=== PATIENT | female | born 1960 | race Caucasian/White ===

== ENCOUNTER 2018-07-26 21:40 | Outpatient (CLI) | payer SELFPAY | END 2018-07-26 21:41 | disposition critical access hospital (66) | LOC: EMS 21:40 | PROVIDERS: ATTEND Surgery | DX: F41.9 Anxiety disorder, unspecified (principal); Z72.89 Other problems related to lifestyle | CPT/HCPCS: A0425; A0429 ==

== ENCOUNTER 2018-07-26 21:59 | Emergency (ER) | payer OTHER ==
[2018-07-26] MEDS ORDERED: diphenhydrAMINE INJ 50 MG/ML VIAL IVP STA (22:18)
[2018-07-26] MEDS ORDERED: ONDANSETRON 4 MG/2 ML VIAL IVP STA (22:18)
[2018-07-26] MEDS ORDERED: SODIUM CHLORIDE 0.9% 1,000 ML IV ONE (22:18)
[2018-07-26 22:56] LABS: BASOPHILS # (AUTO) 0.1 10^3/uL (0.0-0.1); EOSINOPHILS % (AUTO) 0.1 %; HGB - HEMOGLOBIN 13.4 g/dL (12.0-16.0); LYMPHOCYTES # (AUTO) 1.7 10^3/uL (1.5-3.5); LYMPHOCYTES % (AUTO) 16.8 %; MEAN CORPUSCULAR HEMOGLOBIN 32.1 pg (27.0-31.0); MEAN CORPUSCULAR HGB CONC 34.8 g/dL (32.0-36.0); MEAN CORPUSCULAR VOLUME 92.1 fL (81.0-99.0); MEAN PLATELET VOLUME 7.6 fL (7.9-10.8); MONOCYTES # (AUTO) 0.5 10^3/uL (0.0-1.0); MONOCYTES % (AUTO) 5.1 %; NEUTROPHILS # (AUTO) 7.7 10^3/uL (1.5-6.6); PLT - PLATELET COUNT 384 10^3/uL (130-450); RED BLOOD COUNT 4.19 10^6/uL (4.20-5.40); RED CELL DISTRIBUTION WIDTH 12.3 % (12.0-15.0)
[2018-07-26 23:17] LABS: ALBUMIN 4.1 g/dL (3.2-5.5); ALBUMIN/GLOBULIN RATIO 1.2 (1.0-2.2); BILIRUBIN,TOTAL 0.9 mg/dL (0.2-1.0); CALCIUM 8.8 mg/dL (8.5-10.3); CREATININE 0.5 mg/dL (0.4-1.0); TOTAL PROTEIN 7.5 g/dL (6.7-8.2)
[2018-07-26 23:21] LABS: BILIRUBIN,URINE NEGATIVE (NEGATIVE); GLUCOSE, URINE (UA) NEGATIVE (NEGATIVE); KETONES,URINE (UA) TRACE mg/dL (NEGATIVE); LEUKOCYTE ESTERASE, URINE MODERATE (NEGATIVE); NITRITE,URINE NEGATIVE (NEGATIVE); OCCULT BLOOD,URINE TRACE-INTA (NEGATIVE); PROTEIN,URINE TRACE mg/dL (NEGATIVE); UROBILINOGEN,URINE 0.2 (NORMAL) E.U./dL (NORMAL)
[2018-07-26 23:22] LABS: CLARITY,URINE CLEAR (CLEAR)
[2018-07-26 23:26] LABS: BACTERIA,URINE Few /HPF (None Seen); RBC,URINE 0-5 /HPF (0-5); SQUAMOUS EPITHELIAL CELL,UR RARE Squamous (<= Few)
[2018-07-26 23:27] LABS: MUCUS,URINE Moderate Strands
[2018-07-26] MEDS ORDERED: POTASSIUM CHLORIDE 20 MEQ TABLET PO STA (23:49)
[2018-07-26] MEDS ORDERED: LORazepam 0.5 MG TABLET PO STA (23:49)
--- NOTE | 2018-07-26 23:49 | ED Physician Documentation ---
History of Present Illness - Stated complaint Stated Complaint: ETOH - Chief complaint Chief Complaint: MHE - History obtained from History obtained from: Patient - Additonal information Additional information: 58-year-old female with a history of alcohol dependence presents the emergency department with reports of withdrawing. The patient reports drinking just prior to calling EMS, the patient did vomit once. The patient denies any specific pain complaint. The patient is visiting the area and normally resides in the [place] area. No other associated symptoms. No trauma. Symptoms are descr ibed as moderate. Review of Systems Constitutional: denies: Fever, Chills Eyes: denies: Discharge Ears: denies: Ear pain Nose: denies: Congestion Throat: denies: Sore throat Cardiac: denies: Chest pain / pressure Respiratory: denies: Dyspnea GI: reports: Nausea, Vomiting. denies: Abdominal Pain, Hematemesis : denies: Dysuria Skin: denies: Rash Musculoskeletal: denies: Neck pain Neurologic: denies: Generalized weakness Immunocompromised: denies: Chemotherapy PD PAST MEDICAL HISTORY - Past Medical History Past Medical History: Yes Psych: Anxiety, Post traumatic stress disorder, Other Other Past Medical History: mood disorder, alcoholism - Past Surgical History Past Surgical History: Yes /SECURITY SYSTEMS ADMINISTRATOR: Hysterectomy, Oophrectomy - Present Medications Home Medications: Ambulatory Orders Medication Instructions Recorded Confirmed Disulfiram [Antabuse] 250 mg PO 07/26/18 Naltrexone HCl 50 mg PO 07/26/18 - Allergies Allergies/Adverse Reactions: Allergies Allergy/AdvReac Type Severity Reaction Status Date / Time No Known Drug Allergies Allergy Verified 07/26/18 22:10 - Social History Does the pt smoke?: No Smoking Status: Never smoker Does the pt drink ETOH?: Yes Does the pt have substance abuse?: No PD ED PE NORMAL - General General: Alert and oriented X 3, No acute distress - HEENT HEENT: Atraumatic, PERRL, EOMI, Ears normal, Moist mucous membranes, Pharynx benign - Neck Neck: Supple, no meningeal sign - Cardiac Cardiac: RRR, Strong equal pulses - Respiratory Respiratory: No respiratory distress, Clear bilaterally - Abdomen Abdomen: Soft, Non tender, Non distended - Derm Derm: Normal color - Extremities Extremities: No deformity, Normal ROM s pain, No edema - Neuro Neuro: Alert and oriented X 3, energy director 2-12 intact, No motor deficit, Normal speech - Psych Psych: Normal mood, Normal affect Results - Vitals Vitals: Vital Signs - 24 hr 07/26/18 07/26/18 07/27/18 22:02 23:32 01:20 Temperature 36.6 C Heart Rate 91 92 98 Respiratory 25 H 20 20 Rate Blood Pressure 164/83 H 166/96 H 151/78 H O2 Saturation 97 96 96 07/27/18 01:28 Temperature 36.7 C Heart Rate 91 Respiratory 17 Rate Blood Pressure 151/78 H O2 Saturation 95 Oxygen O2 Source Room air - Labs Labs: Laboratory Tests 07/26/18 07/26/18 07/26/18 22:39 22:39 23:02 WBC 10.0 RBC 4.19 L Hgb 13.4 Hct 38.6 MCV 92.1 MCH 32.1 H MCHC 34.8 RDW 12.3 Plt Count 384 MPV 7.6 L Neut # (Auto) 7.7 H Lymph # (Auto) 1.7 [place] # (Auto) 0.5 Eos # (Auto) 0.0 Baso # (Auto) 0.1 Absolute Nucleated RBC 0.01 Nucleated RBC % 0.1 VBG pH VBG pCO2 VBG pO2 VBG HCO3 VBG Total CO2 VBG O2 Saturation VBG Base Excess Sodium 124 L Potassium 3.4 L Chloride 89 L Carbon Dioxide 21 Anion Gap 14.0 H BUN 7 Creatinine 0.5 Estimated GFR (MDRD) 126 Glucose 143 H Calcium 8.8 Total Bilirubin 0.9 AST 30 ALT 30 Alkaline Phosphatase 79 Total Protein 7.5 Albumin 4.1 Globulin 3.4 Albumin/Globulin Ratio 1.2 Lipase 30 Urine Color YELLOW Urine Clarity CLEAR Urine pH 6.0 Ur Specific [place] 1.025 Urine Protein TRACE Urine Glucose (UA) NEGATIVE Urine Ketones TRACE Urine Occult Blood TRACE-INTA Urine Nitrite NEGATIVE Urine Bilirubin NEGATIVE Urine Urobilinogen 0.2 (NORMAL) Ur Leukocyte Esterase MODERATE H Urine RBC 0-5 Urine WBC >25 H Ur Squamous Epith Cells RARE Squamous Urine Bacteria Few Urine Mucus Moderate Strands Ur Microscopic Review INDICATED Urine Culture Comments INDICATED Serum Ketones 07/27/18 07/27/18 07/27/18 00:15 00:15 00:15 WBC RBC Hgb Hct MCV MCH MCHC RDW Plt Count MPV Neut # (Auto) Lymph # (Auto) [place] # (Auto) Eos # (Auto) Baso # (Auto) Absolute Nucleated RBC Nucleated RBC % VBG pH 7.465 H VBG pCO2 27.8 L VBG pO2 174.3 H VBG HCO3 19.6 L VBG Total CO2 20.4 L VBG O2 Saturation 98.7 H VBG Base Excess -2.7 L Sodium 126 L Potassium 3.5 Chloride 95 L Carbon Dioxide 19 L Anion Gap 12.0 BUN 7 Creatinine 0.6 Estimated GFR (MDRD) 102 Glucose 139 H Calcium 8.5 Total Bilirubin AST ALT Alkaline Phosphatase Total Protein Albumin Globulin Albumin/Globulin Ratio Lipase Urine Color Urine Clarity Urine pH Ur Specific [place] Urine Protein Urine Glucose (UA) Urine Ketones Urine Occult Blood Urine Nitrite Urine Bilirubin Urine Urobilinogen Ur Leukocyte Esterase Urine RBC Urine WBC Ur Squamous Epith Cells Urine Bacteria Urine Mucus Ur Microscopic Review Urine Culture Comments Serum Ketones NEGATIVE PD MEDICAL DECISION MAKING - ED course ED course: The patient's CIWA Score is a 4, the patient appears appropriate for discharge and ongoing outpatient management. The patient was treated in the emergency department. The patient was given information on local detox centers and I advised that she can call in the morning to talk things over with social work. Presently, there is no indication for admission to the hospital since the patient is not manifesting any signs of delirium tremens, Or alcohol ketoacidosis. Patient currently appears appropriate for discharge and ongoing outpatient management. I discussed warning signs and recommended returning to the emergency department immediately for worsening or any concerns. - Sepsis Event Vital Signs: Vital Signs - 24 hr 07/26/18 07/26/18 07/27/18 22:02 23:32 01:20 Temperature 36.6 C Heart Rate 91 92 98 Respiratory 25 H 20 20 Rate Blood Pressure 164/83 H 166/96 H 151/78 H O2 Saturation 97 96 96 07/27/18 01:28 Temperature 36.7 C Heart Rate 91 Respiratory 17 Rate Blood Pressure 151/78 H O2 Saturation 95 Oxygen O2 Source Room air Departure - Departure Disposition: 01 Home, Self Care Clinical Impression: Hyponatremia Alcohol dependence Qualifiers: Substance use status: with intoxication Complication of substance-induced condition: uncomplicated Qualified Code(s): F10.220 - Alcohol dependence with intoxication, uncomplicated Condition: Good Comments: Please call the detox centers from the paperwork that we provided. You can also call in the morning to talk with our social work. Please return to the emergency department for worsening symptoms or any concerns
[2018-07-26] MEDS ORDERED: THIAMINE INJ 100 MG in SODIUM CHLORIDE 0.9% 50 ML IV STA (23:55)
[2018-07-26] MEDS ORDERED: FOLIC ACID INJ 1 MG in SODIUM CHLORIDE 0.9% 1,000 ML IV STA (23:55)
[2018-07-26] MEDS ORDERED: THIAMINE 100 MG/1 ML 2 ML MDV ONE (23:59)
[2018-07-27] MEDS ORDERED: MAGNESIUM SULFATE 2 GRAM 2 GM/50 ML BAG IV ONE
[2018-07-27 00:23] LABS: VBG BASE EXCESS -2.7 mmol/L (-2 - +2); VBG PCO2 27.8 mmHg (41-51); VBG PH 7.465 (7.31-7.41); VBG PO2 174.3 mmHg (25-47); VBG TOTAL CO2 20.4 mmol/L (24-29)
[2018-07-27] MEDS ORDERED: LACTATED RINGERS 1,000 ML IV ONE (00:27)
[2018-07-27 01:20] LABS: CALCIUM 8.5 mg/dL (8.5-10.3); CREATININE 0.6 mg/dL (0.4-1.0)
[2018-07-27 01:51] VITALS: BP 133/97
== END 2018-07-27 01:50 | disposition home or self-care (01) ==
LOC: ED 21:59
DX: E87.1 Hypo-osmolality and hyponatremia (principal); F10.220 Alcohol dependence with intoxication, uncomplicated
CPT/HCPCS: 80048; 80053; 81001; 82009; 82803; 83690; 85025; 87077; 87086; 87181; 96361; 96365; 96368; 96375; 99284; A9270; J1200; J3411; J7120; 36415; 81003